=== PATIENT | male | born 1985 | race Caucasian/White ===

== ENCOUNTER 2018-07-11 13:09 | Emergency (ER) | payer SELFPAY ==
[2018-07-11 13:24] VITALS: BP 118/67
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
== END 2018-07-11 14:05 | disposition home or self-care (01) ==
LOC: ER 13:09
DX: M79.602 Pain in left arm (principal); F17.210 Nicotine dependence, cigarettes, uncomplicated
CPT/HCPCS: 99283

== ENCOUNTER 2019-08-07 09:56 | Emergency (ER) | payer SELFPAY ==
[2019-08-07] MEDS ORDERED: DIPH/PERTUSS(ACELL)/TETANUS VAC/PF 0.5 ML SYR (>=10YO) IM ONE (10:31)
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
[2019-08-07] MEDS ORDERED: LIDOCAINE 1% INJ-PF (10 MG/ML) 30 ML SDV INJ ONE (12:29)
[2019-08-07] MEDS ORDERED: NEOMY/BACITRAC ZN/POLY OINT 15 GM TP ONE (13:27)
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
[2019-08-07 14:03] VITALS: BP 125/81
== END 2019-08-07 14:04 | disposition home or self-care (01) ==
LOC: ER 09:56
DX: S09.12XA Laceration of muscle and tendon of head, initial encounter (principal); S01.21XA Laceration without foreign body of nose, initial encounter; W21.89XA Striking against or struck by other sports equipment, initial encounter; Y93.51 Activity, roller skating (inline) and skateboarding; F17.200 Nicotine dependence, unspecified, uncomplicated
CPT/HCPCS: 90471; 90715; 99282; J3490